=== PATIENT | female | born 1990 | race Caucasian/White ===

== ENCOUNTER → 2023-08-01 11:24 | Outpatient (CLI) | payer OTHER, SELFPAY ==
[2023-08-01 11:58] LABS: Add Manual Diff / Slide Review NO; Basophils Absolute Auto 0 /uL (0-100); Basophils Percent Auto 0.4 % (0-2); Eosinophils Absolute Auto 0 /uL (0-450); Eosinophils Percent Auto 0.2 % (2-4); Hematocrit 39.3 % (36-46); Hemoglobin 13.2 g/dL (12.0-16.0); Lymphocytes Absolute Auto 1500 /uL (1100-4500); Lymphocytes Percent Auto 23.7 % (25-40); Mean Corpuscular HGB Conc 33.7 % (30-36); Mean Corpuscular Hemoglobin 29.6 PG (26-34); Mean Corpuscular Volume 87.9 fL (80-100); Monocytes Absolute Auto 600 /uL (0-900); Monocytes Percent Auto 9.4 % (3-14); Neutrophils Absolute Auto 4200 /uL (1500-7000); Neutrophils Percent Auto 66.3 % (50-75); Platelet Count 175 X10^3/uL (150-400); Red Blood Cell Count 4.47 X10^6/uL (4.0-5.2); Red Cell Distribution Width 13.2 % (11.6-14.8); White Blood Cell Count 6.3 X10^3/uL (4.5-11.0)
[2023-08-01 12:27] LABS: Appearance Urine UA CLEAR; Bilirubin Urine UA NEGATIVE (NEGATIVE); Color Urine UA YELLOW; Glucose Urine UA NEGATIVE (Negative); Ketones Urine UA 2+ (NEGATIVE); Leukocyte Esterase Urine UA TRACE (NEGATIVE); Nitrite Urine UA NEGATIVE (Negative); Occult Blood Urine UA NEGATIVE (Negative); Protein Urine UA NEGATIVE (Negative); Specific Gravity Urine UA <=1.005 (1.000-1.035); Urobilinogen Urine UA 0.2 E.U./dL (0.2)
[2023-08-01 13:03] LABS: pH Urine UA 6.5 (4.5-8.0)
[2023-08-01 15:02] LABS: Bacteria Urine None Seen; Culture Indicated Urine Cult Not Indicated; RBC Urine None Seen (0-5/HPF); Squamous Epithelial Cell Urine 1-5 /HPF (0-5/HPF); WBC Urine 1-5/HPF (0-5/HPF)
[2023-08-02 04:58] LABS: RPR Screen Non Reactive (Non Reactive)
[2023-08-02 08:09] LABS: Varicella IgG Antibody 813 index (Immune >165)
[2023-08-02 09:09] LABS: HIV 1 & 2 Ab/Ag 4th Gen Combo NEGATIVE (NEGATIVE); Hep C Virus Ab w/Reflex Quant NEGATIVE s/c (NEGATIVE); Hepatitis B Surface Antigen NEGATIVE s/c (NEGATIVE)
== END ==
PROVIDERS: PCP Family Medicine; Referring Provider Family Medicine; Visit Provider Family Medicine
DX: Z34.81 Encounter for supervision of other normal pregnancy, first trimester (principal)
CPT/HCPCS: 36415; 80055; 81003; 81015; 86787; 86803; 86850; 86900; 86901; 87086; 87389

== ENCOUNTER → 2023-08-26 17:56 | Outpatient (CLI) | payer OTHER, SELFPAY | PROVIDERS: PCP Family Medicine; Referring Provider Family Medicine; Visit Provider Family Medicine | DX: Z34.81 Encounter for supervision of other normal pregnancy, first trimester (principal) | CPT/HCPCS: 36415 ==

== ENCOUNTER → 2023-10-30 16:16 | Outpatient (CLI) | payer OTHER, SELFPAY ==
--- NOTE | 2023-10-30 16:18 | DI.US.S_ITS ---
PROCEDURE: US OB >= 14 WEEKS FETUS INDICATIONS: Over 14 weeks OUTSIDE/PRIOR DATING DATA: Last menstrual period (LMP): 06/05/23. LMP-based estimated date of delivery (JASON): 03/11/24. First dating scan (date and location): Unavailable. Estimated date of delivery (JASON) from first dating scan: Not applicable. The calculations are made using the working JASON of 03/11/24. TECHNIQUE: Real-time scanning was performed of the fetus, with image documentation and biometric measurements. Endovaginal scanning: Not performed COMPARISON: None. FINDINGS: General: A single living intrauterine gestation is present. Presentation: Vertex. Placenta: Placental position is posterior and low lying. The edge is within 1 cm of the internal cervical os. Amniotic fluid index: 12.4 cm, normal range is 5-24 cm. Single deepest vertical pocket is 4.7 cm. heart rate: 140 beats per minute. Maternal cervical canal: Closed and 3.9 cm long. Normal lower limit is 2.5 cm. biometrics: Biparietal diameter: 4.8 cm, 20 weeks 3 days Head circumference: 17.7 cm, 20 weeks 1 day Abdominal circumference: 15.2 cm, 20 weeks 3 days Femur length: 3.5 cm, 20 weeks 6 days Clinically estimated gestational age: 21 weeks 0 days Composite gestational age from present scan: 20 weeks 3 days Estimated weight and percentile: 363 g, 24th percentile Anatomic survey: Neuro: Ventricles are non-dilated at less than 10 mm. Cisterna magna is normal at 3-11 mm. Cerebellum is normal in size and morphology. Nuchal skin fold: Normal at less than 6 mm between 14-21 weeks gestational age. Face: Nose and lips, facial profile are normal. Spine: No evidence for spina bifida. Heart: 4-chambered heart is present, with normal ventricular outflow tracts. Diaphragm: Diaphragm is intact. Stomach: Left-sided stomach is present. Kidneys: No hydronephrosis. Normal is less than 5 mm in 2nd trimester, less than 7 mm in 3rd trimester. Cord: 3-vessel cord has orthotopic insertion. Bladder: Normal in size. Extremities: All 4 extremities identified. IMPRESSION: 1. Single living intrauterine with growth concordant with the expected gestational age. 2. Normal anatomy. 3. Posterior, low lying placenta. Follow-up recommended. We strive to produce accurate, complete, and clear reports of imaging services. To assist us in improving patient care, this report was composed using standard report templates and voice recognition software. Therefore, it may contain abnormal punctuation, insertions and/or omissions. Occasional wrong-word or sound-alike substitutions may occur. Though we review the report and make efforts to correct it, we do recommend that the report be read carefully in proper context to recognize any text inaccuracies. Dictated by: Karlene Soares M.D. on 10/31/2023 at 9:07 Approved by: Karlene Soares M.D. on 10/31/2023 at 9:34
== END ==
PROVIDERS: PCP Family Medicine; Referring Provider Family Medicine; Visit Provider Family Medicine
DX: Z3A.20 20 weeks gestation of pregnancy; O44.42 Low lying placenta NOS or without hemorrhage, second trimester
CPT/HCPCS: 76811

== ENCOUNTER → 2023-12-02 12:39 | Outpatient (CLI) | payer OTHER, SELFPAY ==
[2023-12-02 14:44] LABS: GTT (PREG) 1 Hour PP 50gm Dose 101 mg/dL (76-139)
== END ==
PROVIDERS: PCP Family Medicine; Referring Provider Family Medicine; Visit Provider Family Medicine
DX: Z34.80 Encounter for supervision of other normal pregnancy, unspecified trimester (principal)
CPT/HCPCS: 36415; 82950

== ENCOUNTER → 2023-12-30 12:20 | Outpatient (CLI) | payer OTHER, SELFPAY ==
--- NOTE | 2023-12-30 12:22 | DI.US.S_ITS ---
PROCEDURE: US OB LIMITED INDICATIONS: PLACENTAL PLACEMENT OUTSIDE/PRIOR DATING DATA: Last menstrual period (LMP): 06/05/2023. LMP-based estimated date of delivery (JASON): 03/11/2024 First dating scan (date and location): 10/30/2023. Estimated date of delivery (JASON) from first dating scan: Unknown. The calculations are made using the clinical JASON of 03/11/2024. TECHNIQUE: Real-time scanning was performed of the fetus, with image documentation. COMPARISON: [facility], , OB >= 14 WEEKS FETUS, 10/30/2023, 16:28. FINDINGS: A single living intrauterine gestation is present. Presentation: Vertex. Placenta: Placental position is posterior, without previa. Placenta is 11 cm from the internal os. Amniotic fluid index: 13.1 cm, normal range is 5-24 cm. Single deepest vertical pocket is 4.5 cm. heart rate: 139 beats per minute. Maternal cervical canal: 3.0 cm long. Normal lower limit is 2.5 cm. Clinically estimated gestational age: 29 weeks 5 days IMPRESSION: Single live intrauterine with placenta measuring 11 cm from the internal os. Dictated by: Samara Bunn M.D. on 12/30/2023 at 16:20 Approved by: Samara Bunn M.D. on 12/30/2023 at 16:22
== END ==
PROVIDERS: PCP Family Medicine; Referring Provider Family Medicine; Visit Provider Family Medicine
DX: O44.43 Low lying placenta NOS or without hemorrhage, third trimester (principal); Z3A.29 29 weeks gestation of pregnancy
CPT/HCPCS: 76815; 76817

== ENCOUNTER → 2024-02-19 14:52 | Outpatient (CLI) | payer OTHER, SELFPAY ==
[2024-02-20 14:59] LABS: Strep Grp B PCR NEG for Grp B Strep
== END ==
PROVIDERS: PCP Family Medicine; Visit Provider Family Medicine
DX: Z34.80 Encounter for supervision of other normal pregnancy, unspecified trimester (principal)
CPT/HCPCS: 87653

== ENCOUNTER 2024-03-12 11:26 | Inpatient (IN) | payer OTHER, SELFPAY ==
--- NOTE | 2024-03-12 13:32 | P.HPOB_ITS ---
OB HPI Date/Time Date of admission: 03/12/24 Date Patient Seen: 03/12/24 Time Patient Seen: 12:45 History of Present Condition Chief complaint: OBS JASON Calculator Estimated Delivery Date Method Current WG Current Estimate 03/11/24 LMP (Certain) 40w 1d Other Estimates 03/12/24 Ultrasound #1 40w 0d Estimated Gestational Age (weeks): 40 : 3 Para: 1 Narrative: 33-year-old at GA 40+1 weeks presents for evaluation of contractions. Started having regular contractions around 7:00 a.m. this morning. Also had some light spotting and lost her mucus plug. Contractions were initially every 8 minutes and then became more frequent up to every 4-5 minutes at this time. Moderately uncomfortable but able to tolerate. Endorses normal movement. Denies leakage of fluid. complicated by low-lying placenta on anatomy ultrasound that had resolved on subsequent evaluation at 28 weeks. No other active medical issues. Only medication is vitamin. care: good care Dating criteria OB: LMP confirmed by 1st trimester US Ultrasounds: normal 1st trimester US and normal mid trimester US Obstetrical complications: none Medical complications OB: none Preadmission Labs Last OB Lab Results: Blood Type A Positive 08/01/23 11:30 Antibody Screen Negative 08/01/23 11:30 Hematocrit 39.3 % (36-46) 08/01/23 11:30 Hemoglobin 13.2 g/dL (12.0-16.0) 08/01/23 11:30 Hepatitis B Surface Antigen Negative s/c (NEGATIVE) 08/01/23 11 :30 Hepatitis C Antibody Negative s/c (NEGATIVE) 08/01/23 11:30 Rubella Antibody 107.0 IU/mL (>15) 08/01/23 11:30 Varicella-Zoster IgG Antibody 813 index (Immune >165) 08/01/23 11:30 Glucose 1 Hour 101 mg/dL (76-139) 12/02/23 14:02 Group B Streptococcus (PCR) Neg for grp b strep 02/19/24 14:52 -: PAP smear: Normal Genetic Screens: Cell-free DNA: Normal Prior (ies) Past Pregnancies Del. Date GA/Weeks Labor Lgth Wt Sex Route Outcome Anesthesia Place Delv Breastfeed Preg Comp Name 11/10/17 ~4 spontaneous 04/09/19 38+ 10 6 lb 15 oz Male vaginal live - full term Kalia Cat 4 months none Aashish Delivery Date: 11/10/17 Last Updated by: Cailin Ceron RN passed spontaneously, no complications Evaluation Evaluation Baseline heart rate: 135 Variability: Moderate (11-25) monitor accelerations: Present Monitor Decelerations: Absent Contraction Frequency (minutes): 4 Uterine Contraction Intensity: Moderate Category of Tracing: Reactive Status: Category l Dilation (cm): 6.5 Effacement (%): 80 station: -1 Position of cervix: mid Consistency: soft Comments: Exam per L&D RN [facility] Medical History (Updated 01/29/24 @ 15:00 by Xander La MD) Absence seizure Surgical History (Updated 08/08/23 @ 20:43 by Alma Moody) Anesthesia [place] teeth extracted (~2006) Family History (Updated 08/08/23 @ 20:46 by Alma Moody) Grandfather Bladder cancer H/O pneumonectomy Heavy smoker Grandfather Bladder cancer Lung cancer Heavy smoker Grandmother Parkinson's disease Social History marital status: number of children: 1 household members: spouse and children lives independently: Yes caregiver/support person: Yes housing: house pets and animals: Yes (dogs) education level: college occupational status: employed current occupational exposures/hazards: Yes (not currently participating in surgeries or taking xrays) special kishan needs: No travel history: recent seatbelt use: always helmet use: Yes water heater temp set < 120 deg: Yes working smoke detector in home: Yes fire extinguisher in home: Yes carbon monox detector in home: Yes firearms in home: Yes firearms unloaded and locked: Yes do you feel safe at home: Yes Smoking Status: Never smoker Tobacco: How many years used: 7 second hand exposure: No alcohol intake: former substance use type: does not use during the past year weight has: remained stable well-balanced diet: daily or most days daily servings fruits/ve-4 caffeine: Yes (AM cup coffee) Type(s) of exercise: walking frequency: daily Meds Home Medications and Allergies Home Medications Medication Instructions Recorded Confirmed Type vitamin-ferrous sulfate tab PO 07/21/23 03/11/24 History 27 mg iron-folic acid 0.8 mg tablet Allergies Allergy/AdvReac Type Severity Reaction Status Date / Time No Known Drug Allergies Allergy Verified 03/11/24 14:22 OB Exam Narrative Exam Narrative: General: Well-nourished, no distress HEENT: NC/AT, EOMI, moist mucous membranes CV: RRR, normal S1 S2, no m/g/r Resp: CTAB Abd: Gravid, soft, NTND, +BS Ext: Full ROM, no edema Skin: No rash or lesions Neuro: A&O x3, normal tone, no focal deficits Assessment and Plan Assessment and Plan Assessment and Plan narrative: 33-year-old at GA 40+1 weeks presenting for labor. uncomplicated thus far. -admit to L&D -GBS negative, ppx not indicated -pain control prn if desired by patient -PPH risk low -VTE risk low, SCDs with epidural -anticipate vaginal delivery Time Spent with Patient Total time spent with greater than 50% in coordination of care (as documented) at patient's floor/unit and/or counseling patient:: 15-24 minutes
--- NOTE | 2024-03-12 15:52 | PM.AN.REGBLK ---
Regional Block Pre-procedure Procedure: Continuous Lumbar Epidural for L&D Attending OB provider: Xander La PMH/ROS narrative: 33-year-old at 40+1, no medical or obstetric complications with , no sig PMH. ASA Class: II Medications: Current Medications Generic Name Dose Route Start Last Admin Trade Name Freq PRN Reason Stop Dose Admin Diphenhydramine HCl 25 mg 03/12/24 13:49 Diphenhydramine 50 Mg/Ml Vial IV Q10M PRN Pruritis FENT 2MCG/ML BUPIV 0.125% EPI 200 mcg in 100 mls @ 6 mls/hr 03/12/24 14:00 Fentanyl/Bupiv/Ns 2mcg/Ml - 0.125% EPIDURAL CONT LOIS Nalbuphine HCl 2.5 mg 03/12/24 13:49 Nalbuphine 20 Mg/Ml Ampul IV Q10M PRN Pruritis Sodium Chloride 10 ml 03/12/24 21:00 Sodium Chloride 0.9% Flush IV BID LOIS Sodium Chloride 10 ml 03/12/24 13:49 Sodium Chloride 0.9% Flush IV PRN PRN Flush Allergies: Allergies Allergy/AdvReac Type Severity Reaction Status Date / Time No Known Drug Allergies Allergy Verified 03/11/24 14:22 Procedure Insertion date: 03/12/24 Insertion time: 14:02 Prep/Local: betadine x3 and 1% lidocaine Interspace: L3-4 Patient position: sitting Needle: 18 gauge Hustead (CSE: 27g Pencan through Hustead, clear CSF, 1mL 0.25% bupiv MPF) Loss of resistance with: saline JAIDEN at (cm): 5 Catheter placed at SKIN (cm): 10 Catheter in SPACE (cm): 5 Insertion: No CSF, No Blood, No Paresthesia with insertion, No Paresthesia with injection and No Test dose reaction Initial Medications TEST DOSE time: 14:03 TEST DOSE: 1.5% lidocaine with epinephrine 1:200k (mL): 3 BOLUS DOSE time: 14:12 BOLUS DOSE (mL): 4 BOLUS DOSE med: other (infusate) Infusion INFUSION: 0.125% bupivacaine and with fentanyl 2 mcg/mL Initial rate (mL/hr): 10 Subsequent interventions: PCEA@10+4 Post-procedure Anesthesia date START: 03/12/24 Anesthesia time START: 13:54 Anesthesia date END: 03/12/24 Anesthesia time END: 17:47 Post-procedure Anesthesia Assessment: Yes CV function: HR/BP stable, Yes Resp function: RR/sat/airway adequate, Yes Post-op hydration adequate, Yes Pain control adequate, Yes Nausea & vomiting absent, Yes Temperature > 36 C, Yes Mental status appropriate and No Anesthesia complications
[2024-03-12 17:31] VITALS: BP 130/73
[2024-03-12] MEDS: OXYTOCIN PREMIX 30 UNIT/500 ML PLAST..BAG 999 UNIT IV (18:00)
--- NOTE | 2024-03-12 20:15 | PM.OBPRVD ---
Labor & Delivery Delivery date: 03/12/24 Delivery augmentation: rupture of membranes and pitocin Delivery monitor: external FHT and external uterine Route of delivery: L&D Laceration Description: Perineal - 2nd Degree Delivery repair: vicryl Quantitative Blood Loss: 557 Anesthesia Type: Epidural Narrative: Patient fully dilated at 1732 and began pushing at 1732. Spontaneous vaginal delivery of a viable female infant in the JOANIE position occurred at 1738. The was suctioned and stimulated at the perineum, and gave appropriate cry with movement of all extremities. Delayed cord clamping was observed for 60 seconds. The cord was clamped and cut, and the handed to mother for skin to skin. Cord blood and segment were obtained. The placenta was delivered without difficulty using gentle cord traction and found to be intact with a 3-vessel cord. After fundal massage the uterus was firm and bleeding stopped. The vagina and cervix were examined for lacerations. A second-degree perineal laceration was noted and repaired with 3-0 Vicryl suture in the usual fashion. Patient stable with rooming in, bonding skin to skin and attempting to breastfeed. [place] Baby 1: Infant gender: Female Presentation: vertex Position: Right Occiput Anterior Placenta delivery description: Spontaneous Cord Vessel Description: 3 Vessels score (1 min): 8 score (5 min): 9 weight: 7 lb 4.616 oz Plan for aftercare: Routine care
[2024-03-13] MEDS: DERMOPLAST SPRAY 20% 60 ML 1 SPRAY TOP (07:06)
[2024-03-13] MEDS: IBUPROFEN 600 MG TABLET PO (07:06)
[2024-03-13] MEDS: LANOLIN OINT 7 GM 1 APPLIC TOP (07:06)
--- NOTE | 2024-03-13 11:56 | PM.OBDS.1 ---
Discharge Providers Provider Date of admission: 03/12/24 11:26 Discharge Date: 03/13/24 Primary care physician: Xander La MD Consults: 03/13/24 23:09 Consult to Outbound Sales Advisor Routine Comment: Discharge provider: Xander La MD Summary Hospital Course Date Patient Seen: 03/13/24 Time Patient Seen: 11:56 Diagnoses: Hospital Course: Admitted for normal labor on 03/12/2024. Progressed adequately with AROM augmentation to complete dilation over the course of 6 hours. She had an uncomplicated of a live female with a second-degree laceration that was repaired in usual fashion. QBL was 557 mL. Her course was uncomplicated. At discharge patient is ambulating well, tolerating normal diet, breast-feeding without difficulty, and pain is adequately controlled. She reports bleeding is less than normal menses. Peripartum Data Infant Delivery Method: Natural Vaginal Laceration Description: Perineal - 2nd Degree complications: none [place] 1: Gender: Female Disposition of : home Discharge Diagnosis (1) (spontaneous vaginal delivery): Start Date: 03/12/24 Status: Acute Status at Discharge Cognitive/behavioral status at discharge: at baseline, oriented Functional status at discharge: independent ambulation Overall status at discharge: patient is back to baseline Time Spent with Patient Time attestation: Total time spent providing and/or coordinating discharge services: 20 minutes Exam Narrative Exam Narrative: General: Well-appearing, well-nourished, no distress HEENT: Moist mucous membranes, no pallor CV: Regular rate and rhythm, no murmur auscultated Resp: CTAB, comfortable work of breathing Abdomen: Soft, bowel sounds present, fundus firm below umbilicus with appropriate tenderness Extremities: No edema, well-perfused, no calf tenderness or evidence of DVT Discharge Plan Discharge Plan Patient Disposition: Home Discharge orders & Medications Prescriptions: Continued vit-ferrous sulfat-FA 27 mg iron- 0.8 mg tablet PO Follow up/Referrals: Xander La MD [Primary Care Provider] - 6 Weeks (Please call the office to schedule a 6 week visit) Diet/Activity/Treatments Diet: Diet as Tolerated Activity: As tolerated Visit Report/Discharge Packet Instructions: DI for Hemorrhage Stand Alone Forms: Discharge: Care, Patient Portal/API, Stroke Signs & Symptoms Discharge Data Primary Care Provider: Xander La Attending Provider: Xander La Admit Date/Time: 03/12/24 11:26 Discharges patient from system. Discharge Date/Time: 03/13/24 12:55
== END 2024-03-13 12:55 | disposition home or self-care (01) | DRG 807 ==
PROVIDERS: Admitting Provider Family Medicine; PCP Family Medicine; Referring Provider Family Medicine; Visit Provider Family Medicine
DX: O70.1 Second degree perineal laceration during delivery (principal); Z37.0 Single live birth; Z3A.40 40 weeks gestation of pregnancy
CPT/HCPCS: 36415; 59050; G0378; G0379; J2590